=== PATIENT | male | born 1995 | race Caucasian/White ===

== ENCOUNTER 2019-06-16 14:40 | Emergency (ER) | payer OTHER ==
[~2019-06-16] VITALS: Ht 188 cm; Wt 69.1 kg
[2019-06-16 14:49] VITALS: BP 101/69
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
[2019-06-16] MEDS ORDERED: KETOROLAC 30 MG/1 ML ONE (15:22)
[2019-06-16] MEDS ORDERED: KETOROLAC 30 MG/1 ML IM ONE (15:30)
== END 2019-06-16 17:15 | disposition home or self-care (01) ==
LOC: ED 17:09
DX: S43.102A Unspecified dislocation of left acromioclavicular joint, initial encounter (principal); M54.2 Cervicalgia; Z72.9 Problem related to lifestyle, unspecified; V49.59XA Passenger injured in collision with other motor vehicles in traffic accident, initial encounter; Y93.89 Activity, other specified; Y92.89 Other specified places as the place of occurrence of the external cause; Y99.8 Other external cause status
CPT/HCPCS: 72125; 73030; 96372; 99284; J1885